=== PATIENT | male | born 2000 | race Caucasian/White ===

== ENCOUNTER 2023-08-28 23:40 | Emergency (ER) | payer OTHER, MEDICAID ==
[~2023-08-28] VITALS: Ht 162.6 cm; Wt 80.7 kg
[2023-08-28 23:54] VITALS: BP 140/83; PULSE 83; RESP 19; TEMP 97.3; O2SAT 99
[2023-08-29 01:30] VITALS: O2SAT 98
[2023-08-29] MEDS: KETOROLAC 30 MG/ML VIAL IM ONE (01:37)
[2023-08-29] MEDS ORDERED: IBUP-1842 PO (02:11)
[2023-08-29] MEDS ORDERED: CYCL-711 PO (02:11)
[2023-08-29] MEDS ORDERED: DICL100G32 TP (02:11)
[2023-08-29 02:36] VITALS: BP 137/79; PULSE 76; RESP 15; O2SAT 99
== END 2023-08-29 02:37 | disposition home or self-care (01) ==
LOC: MED 23:40
DX: S39.012A Strain of muscle, fascia and tendon of lower back, initial encounter (principal); S50.01XA Contusion of right elbow, initial encounter; S80.02XA Contusion of left knee, initial encounter; T22.121A Burn of first degree of right elbow, initial encounter; Z79.899 Other long term (current) drug therapy; V49.88XA Car occupant (driver) (passenger) injured in other specified transport accidents, initial encounter; Y93.89 Activity, other specified; Y92.89 Other specified places as the place of occurrence of the external cause; Y99.8 Other external cause status
CPT/HCPCS: 72100; 73080; 73562; 96372; 99284; J1885